=== PATIENT | male | born 2000 | race Caucasian/White ===

== ENCOUNTER 2023-11-12 02:22 | Emergency (ER) | payer BC ==
[~2023-11-12] VITALS: Ht 193 cm; Wt 93.2 kg
[2023-11-12 02:31] VITALS: TEMP 98.6
[2023-11-12] MEDS ORDERED: Mag/Al Hydrox/Simeth Susp 30 ML CUP PO ONE (03:00)
[2023-11-12] MEDS ORDERED: Ondansetron 4 MG/2 ML VIAL IV ONE (03:00)
[2023-11-12] MEDS ORDERED: NS 50 ML IV SCH (03:17)
[2023-11-12] MEDS ORDERED: Iohexol 300 - 100 ML VIAL IV ONE (03:17)
[2023-11-12 03:22] LABS: BASO % 0.5 % (0.0-2.0); EOS # 0.4 K/mm3 (0.0-0.7); EOS % 4.5 % (0.0-4.0); GRAN # 4.7 K/mm3 (1.4-6.5); GRAN % 57.6 % (42.2-75.2); HEMOGLOBIN 13.9 g/dl (12.5-16.1); LYMPH # 2.3 K/mm3 (1.2-3.4); LYMPH % 28.2 % (20.0-51.0); MEAN CELL VOLUME 92 fl (80.0-95.0); MEAN CORPUSCULAR HEMOGLOBIN 31 pg (26-32); MEAN CORPUSCULAR HGB CONC 34 g/dl (33.0-37.0); MEAN PLATELET VOLUME 10.3 fl (7.4-10.4); MONO # 0.7 K/mm3 (0.1-0.6); PLATELET COUNT 176 K/mm3 (130-400); RED BLOOD COUNT 4.46 M/mm3 (4.20-5.60); REDCELL DISTRIBUTION WIDTH-CV 12.2 % (11.5-14.5)
[2023-11-12 04:04] LABS: TROPONIN-I 0.02 ng/mL (0.00-0.033)
[2023-11-12 04:07] LABS: BILIRUBIN,TOTAL 0.4 mg/dL (0.2-1.2); CALCIUM 9.4 mg/dL (8.4-10.2); CREATININE, serum 0.99 mg/dL (0.72-1.25); MAGNESIUM 2.1 mg/dL (1.6-2.6); POTASSIUM 3.9 mEq/L (3.5-4.5); TOTAL PROTEIN 6.6 g/dl (6.2-8.1)
[2023-11-12] MEDS ORDERED: PEPCID 20MG TAB20 MG PO (04:15)
[2023-11-12] MEDS ORDERED: CARAFATE S1 GM/10 ML PO (04:15)
[2023-11-12 04:28] VITALS: BP 125/70; PULSE 64
== END 2023-11-12 04:29 | disposition home or self-care (01) ==
LOC: COL.ER 02:22
PROVIDERS: Emergency Medicine
DX: K29.70 Gastritis, unspecified, without bleeding (principal)
CPT/HCPCS: J2405; Q9967